=== PATIENT | female | born 1990 | race African-American/Black ===

== ENCOUNTER 2019-09-08 20:19 | Emergency (ER) | payer MEDICAID ==
[~2019-09-08] VITALS: Ht 162.6 cm; Wt 125.0 kg
[2019-09-08 20:25] VITALS: Ht 162.6 cm; Wt 125.0 kg
[2019-09-08] MEDS ORDERED: ALBUTEROL SULF8.5 GM INH (20:26)
[2019-09-08 20:49] LABS: APPEARANCE CLEAR (CLEAR); BILIRUBIN NEGATIVE (NEGATIVE); COLOR YELLOW (YELLOW); GLUCOSE NEGATIVE (NEGATIVE); KETONE NEGATIVE (NEGATIVE); NITRITE NEGATIVE (NEGATIVE); PROTEIN NEGATIVE (NEGATIVE); SPECIFIC GRAVITY 1.015 (1.005-1.020); UROBILINOGEN NORMAL (NORMAL)
[2019-09-08 20:55] LABS: HCG URINE NEGATIVE (NEGATIVE)
[2019-09-08 20:55] LABS: BASOPHILS 0.1 % (0-2); EOSINOPHILS 2.6 % (0-7); HEMOGLOBIN 11.7 g/dL (12-16); IMMATURE GRANULOCYTES 0.1 % (0-5); LYMPHOCYTES 50.5 % (15-50); MCH 28.4 pg (26.0-34.0); MCHC 30.8 g/dL (31.0-37.0); MCV 92.2 fL (80.0-100.0); MONOCYTES 5.1 % (2-11); NEUTROPHILS 41.6 % (40-80); PLATELET COUNT 280 10x3/uL (130-400); RBC 4.12 10x6/uL (4.00-5.40); RDW 12.6 % (11.5-14.5); WBC 7.7 10x3/uL (4.8-10.8)
[2019-09-08 21:39] LABS: AMYLASE - SERUM 28 U/L (25-115); CALC OSMOLALITY 280 mosm/kg (275-300); CHLORIDE - SERUM 106 mmol/L (98-107); CREATININE - SERUM 0.8 mg/dL (0.6-1.3); GLUCOSE 81 mg/dL (74-106); LIPASE 124 U/L (73-393); POTASSIUM - SERUM 3.4 mmol/L (3.5-5.1); SODIUM 142 mmol/L (136-145); UREA NITROGEN 10 mg/dL (7-18); eGFR NON AFRICAN AMERICAN 89 mL/min (90-120)
[2019-09-08 21:40] LABS: ALKALINE PHOSPHATASE 54 U/L (46-116); ALT (SGPT) 44 U/L (10-68); BILIRUBIN - TOTAL 0.23 mg/dL (0.2-1.3); CARBON DIOXIDE 26.1 mmol/L (21.0-32.0); PROTEIN - SERUM 7.8 g/dL (6.4-8.2)
[2019-09-08 21:41] LABS: ALBUMIN 3.5 g/dL (3.4-5.0)
[2019-09-08] MEDS ORDERED: ZOFRAN4 MG PO (22:02)
[2019-09-08 22:14] VITALS: BP 138/77
== END 2019-09-08 22:14 | disposition home or self-care (01) ==
LOC: D.ER 20:19
PROVIDERS: Family Medicine
DX: R11.2 Nausea with vomiting, unspecified (principal); B34.9 Viral infection, unspecified; J45.909 Unspecified asthma, uncomplicated

== ENCOUNTER 2020-03-26 11:01 | Inpatient (IN) | payer MEDICAID ==
[~2020-03-26] VITALS: Ht 162.6 cm; Wt 131.3 kg
[~2020-03-26 11:01] MED LIST: ALBUTEROL SULF8.5 GM INH; ZOFRAN4 MG PO
[2020-03-26 11:37] LABS: BASOPHILS 0.1 % (0-2); EOSINOPHILS 0.3 % (0-7); HEMATOCRIT 38.4 % (36.0-48.0); HEMOGLOBIN 11.7 g/dL (12-16); IMMATURE GRANULOCYTES 0.2 % (0-5); LYMPHOCYTES 7.7 % (15-50); MCH 27.7 pg (26.0-34.0); MCHC 30.5 g/dL (31.0-37.0); MCV 90.8 fL (80.0-100.0); MEAN PLATELET VOLUME 9.1 fL (7.4-10.4); MONOCYTES 1.4 % (2-11); NEUTROPHILS 90.3 % (40-80); PLATELET COUNT 318 10x3/uL (130-400); RBC 4.23 10x6/uL (4.00-5.40); RDW 13.3 % (11.5-14.5); WBC 10.6 10x3/uL (4.8-10.8)
[2020-03-26 11:40] LABS: CALC OSMOLALITY 279 mosm/kg (275-300); CALCIUM 8.8 mg/dL (8.5-10.1); CARBON DIOXIDE 24.3 mmol/L (21.0-32.0); CHLORIDE - SERUM 106 mmol/L (98-107); CREATININE - SERUM 1.1 mg/dL (0.6-1.3); GLUCOSE 117 mg/dL (74-106); POTASSIUM - SERUM 3.2 mmol/L (3.5-5.1); SODIUM 141 mmol/L (136-145); UREA NITROGEN 6 mg/dL (7-18); eGFR NON AFRICAN AMERICAN 61 mL/min (90-120)
[2020-03-26 11:41] LABS: APTT 27.3 SECONDS (22.8-39.4); INR 1.02 (0.85-1.17); PROTIME 13.4 SECONDS (11.6-15.0)
[2020-03-26 11:57] LABS: ALBUMIN 3.8 g/dL (3.4-5.0); ALKALINE PHOSPHATASE 56 U/L (30-120); ALT (SGPT) 53 U/L (10-68); BILIRUBIN - TOTAL 0.19 mg/dL (0.2-1.3); PRO BNP 45 pg/mL (0-125)
[2020-03-26 12:00] LABS: CREATINE KINASE 1281 UL (21-215); TROPONIN-I < 0.017 ng/mL (0.000-0.060)
[2020-03-26 12:03] VITALS: BP 149/92
[2020-03-26 12:17] VITALS: BP 149/92
[2020-03-26 12:39] LABS: HCG SERUM NEGATIVE (NEGATIVE)
[2020-03-26 13:04] VITALS: BP 146/72; BP 152/97
--- NOTE | 2020-03-26 13:19 | NUR ---
PT AMBULATED TO RESTROOM AT THIS TIME. PT REPORTS THAT SHE BECOMES SOB WITH AMBULATION. PT 02 SATURATION 95%
[2020-03-26 13:27] LABS: BILIRUBIN NEGATIVE (NEGATIVE); GLUCOSE NEGATIVE (NEGATIVE); KETONE NEGATIVE (NEGATIVE); NITRITE NEGATIVE (NEGATIVE); UROBILINOGEN NORMAL (NORMAL)
[2020-03-26 13:28] LABS: BACTERIA FEW /hpf (NEGATIVE); RED CELLS - URINE 0-5 /hpf (0-5); WHITE CELLS - URINE RARE /hpf (NEGATIVE)
--- NOTE | 2020-03-26 14:30 | NUR ---
RECEIVED PT TO ROOM 2109 VIA STRETCHER FROM ER ACCOMPANIED BY ER NURSE. PT C/O OF CHEST PAINS AND TIGHTNESS, AWAIS CUADRA AT BEDSIDE. WILL CONT TO MONITOR. MECHANIC CHIEF PUT ON PT.
[2020-03-26 14:50] VITALS: BP 138/99; Ht 162.6 cm; Wt 131.3 kg
--- NOTE | 2020-03-26 19:04 | NUR ---
PT GRANDMOTHER CALLED AND STATED "BITCH, YOU BETTER GO GIVE HER SOME PAIN MEDICINE NOW OR I'M SUEING THAT WHOLE HOS[facility]." EXPLAINED TO GRANDMOTHER THAT I HAVE ASKED MULTIPLE TIMES IF THE PT IS IN PAIN AND SHE HAS TOLD ME MULTIPLE TIMES THAT "NO, IM FINE. IM OKAY." MORPHINE GIVEN PER EMAR. WILL CONT TO MONITOR.
--- NOTE | 2020-03-26 19:07 | NUR ---
PT STATES THAT PAIN MEDICINE "HELPED" HER. WILL CONT TO MONITOR.
--- NOTE | 2020-03-26 19:10 | NUR ---
BEDSIDE REPORT RECEIVED, PT CARE ASSUMED. INTRODUCED SELF AND WROTE NAME ON BOARD. PT SITTING UP IN BED, WATCHING TV, AAOX4. DENIES PAIN OR ANY OTHER NEEDS AT THIS TIME. BED IN LOWEST, SRX2, CALL LIGHT WITHIN REACH. WILL CTM.
[2020-03-26 20:30] VITALS: BP 157/102
[2020-03-27 00:30] VITALS: BP 141/102
[2020-03-27 04:30] VITALS: BP 168/108
[2020-03-27 05:08] LABS: BASOPHILS 0 % (0-2); EOSINOPHILS 0 % (0-7); HEMATOCRIT 34.6 % (36.0-48.0); HEMOGLOBIN 10.7 g/dL (12-16); IMMATURE GRANULOCYTES 0.3 % (0-5); LYMPHOCYTES 8.6 % (15-50); MCH 27.8 pg (26.0-34.0); MCHC 30.9 g/dL (31.0-37.0); MCV 89.9 fL (80.0-100.0); MEAN PLATELET VOLUME 9.8 fL (7.4-10.4); MONOCYTES 2.3 % (2-11); NEUTROPHILS 89.1 % (40-80); PLATELET COUNT 252 10x3/uL (130-400); RBC 3.85 10x6/uL (4.00-5.40); RDW 13.4 % (11.5-14.5); WBC 13.1 10x3/uL (4.8-10.8)
[2020-03-27 05:36] LABS: CALC OSMOLALITY 276 mosm/kg (275-300); CALCIUM 8.1 mg/dL (8.5-10.1); CARBON DIOXIDE 23.7 mmol/L (21.0-32.0); CHLORIDE - SERUM 108 mmol/L (98-107); GLUCOSE 123 mg/dL (74-106); PHOSPHOROUS 2.2 mg/dL (2.5-4.9); POTASSIUM - SERUM 3.7 mmol/L (3.5-5.1); PRO BNP 273 pg/mL (0-125); SODIUM 140 mmol/L (136-145); UREA NITROGEN 5 mg/dL (7-18)
[2020-03-27 05:41] LABS: CREATININE - SERUM 0.7 mg/dL (0.6-1.3); eGFR NON AFRICAN AMERICAN > 90 mL/min (90-120)
--- NOTE | 2020-03-27 07:10 | NUR ---
REPORT RECEIVED FROM SALES ATTENDANT AND PATIENT CARE ASSUMED. PATIENT LAYING IN BED ON BACK WITH EYES CLOSED AND BREATHING EVENLY. WILL CONTINUE WITH PLAN OF CARE. SR UP X 2 BED IN LOW POSITION AND CALL LIGHT IN REACH. FAMILY MEMBER ASLEEP AT BS.
--- NOTE | 2020-03-27 09:59 | NUR ---
PATIENT IS STABLE AND VSS. PATIENT DENIES ANY NEEDS OR PAIN. WILL CONTINUE TO MONITOR. ASSESSEMNT COMPLETED.
--- NOTE | 2020-03-27 14:01 | NUR ---
PATIENT IS UNCHANGED. SITTING UP IN BED WATCHING TV. PATIENT DENIES ANY NEED OR PAIN. WILL CONTINUE TO MONITOR. SR UP X 2 BED IN LOW POSITION AND CALL LIGHT IN REACH.
[2020-03-27 15:11] VITALS: BP 140/92
[2020-03-27 15:13] LABS: CKMB 8.3 U/L (0.0-3.6)
[2020-03-27 15:14] LABS: CREATININE - SERUM 1.3 mg/dL (0.6-1.3)
[2020-03-27 17:55] VITALS: BP 146/96
--- NOTE | 2020-03-27 19:25 | NUR ---
BEDSIDE REPORT RECEIVED, PT CARE ASSUMED. WROTE NAME ON BOARD. PT ON BSC, AAOX4. URINE SAMPLE COLLECTED AND TAKEN TO LAB. DENIES ANY NEEDS AT THIS TIME. BED IN LOWEST, SRX1, CALL LIGHT WITHIN REACH. AT BEDSIDE. WILL CTM.
[2020-03-27 20:02] LABS: UDS - AMPHET NEGATIVE QUAL (NEGATIVE); UDS - BARB NEGATIVE QUAL (NEGATIVE); UDS - BENZO NEGATIVE QUAL (NEGATIVE); UDS - COCAINE NEGATIVE QUAL (NEGATIVE); UDS - OPIATE POSITIVE QUAL (NEGATIVE); UDS - PCP NEGATIVE QUAL (NEGATIVE); UDS - THC POSITIVE QUAL (NEGATIVE)
[2020-03-27 20:30] VITALS: BP 154/100
[2020-03-28 00:30] VITALS: BP 122/88
[2020-03-28 04:30] VITALS: BP 146/93
[2020-03-28 06:25] LABS: HEMATOCRIT 34.6 % (36.0-48.0); HEMOGLOBIN 10.6 g/dL (12-16); LYMPHOCYTES 9.3 % (15-50); MCH 27.6 pg (26.0-34.0); MCHC 30.6 g/dL (31.0-37.0); MCV 90.1 fL (80.0-100.0); MEAN PLATELET VOLUME 9.1 fL (7.4-10.4); NEUTROPHILS 86.5 % (40-80); RBC 3.84 10x6/uL (4.00-5.40); RDW 12.8 % (11.5-14.5); WBC 16.2 10x3/uL (4.8-10.8)
[2020-03-28 06:29] LABS: PLATELET COUNT 322 10x3/uL (130-400)
[2020-03-28 06:47] LABS: CALCIUM 8.6 mg/dL (8.5-10.1); CARBON DIOXIDE 26.6 mmol/L (21.0-32.0); CHLORIDE - SERUM 106 mmol/L (98-107); GLUCOSE 115 mg/dL (74-106); MAGNESIUM - SERUM 2.5 mg/dL (1.8-2.4); POTASSIUM - SERUM 4.1 mmol/L (3.5-5.1); SODIUM 139 mmol/L (136-145); eGFR NON AFRICAN AMERICAN 89 mL/min (90-120)
[2020-03-28 07:29] LABS: CALC OSMOLALITY 278 mosm/kg (275-300); CREATININE - SERUM 0.8 mg/dL (0.6-1.3); PHOSPHOROUS 3.3 mg/dL (2.5-4.9); UREA NITROGEN 13 mg/dL (7-18)
[2020-03-28 09:51] VITALS: BP 157/106
--- NOTE | 2020-03-28 10:15 | NUR ---
REPORT RECIEVED. PT SITTING SEMI FOWLERS IN BED. RR EVEN AND UNLABORED ON 4L NC. SHE HAS A L HAND PIV THAT IS SL. BED LOCKED AND IN LOWEST POSITION, CALL LIGHT WITHIN REACH. WILL CTM
[2020-03-28 13:18] VITALS: BP 149/108
[2020-03-28 16:00] VITALS: BP 155/101
--- NOTE | 2020-03-28 16:23 | NUR ---
I have reviewed this patient and I concur with the Shift Assessment completed by the Licensed Practical Nurse today this shift.
--- NOTE | 2020-03-28 19:20 | NUR ---
PT AWAKE AND ALERT BED LOW AND LOCKED DENIES NEEDS AT THIS TIME
[2020-03-28 21:51] VITALS: BP 146/104
[2020-03-29] VITALS (7 sets, daily range): BP systolic 132–164; BP diastolic 95–112
--- NOTE | 2020-03-29 03:03 | NUR ---
I have reviewed this patient and I concur with the Shift Assessment completed by the Licensed Practical Nurse today this shift.
[2020-03-29 05:52] LABS: BASOPHILS 0 % (0-2); EOSINOPHILS 0 % (0-7); HEMATOCRIT 34.3 % (36.0-48.0); HEMOGLOBIN 10.4 g/dL (12-16); IMMATURE GRANULOCYTES 0.6 % (0-5); LYMPHOCYTES 11.9 % (15-50); MCH 27.1 pg (26.0-34.0); MCHC 30.3 g/dL (31.0-37.0); MCV 89.3 fL (80.0-100.0); MEAN PLATELET VOLUME 9.3 fL (7.4-10.4); MONOCYTES 4.3 % (2-11); NEUTROPHILS 83.2 % (40-80); PLATELET COUNT 346 10x3/uL (130-400); RBC 3.84 10x6/uL (4.00-5.40); RDW 13.4 % (11.5-14.5); WBC 13.1 10x3/uL (4.8-10.8)
[2020-03-29 06:20] LABS: CALC OSMOLALITY 279 mosm/kg (275-300); CALCIUM 8.7 mg/dL (8.5-10.1); CARBON DIOXIDE 25.5 mmol/L (21.0-32.0); CHLORIDE - SERUM 106 mmol/L (98-107); CREATININE - SERUM 0.7 mg/dL (0.6-1.3); GLUCOSE 114 mg/dL (74-106); MAGNESIUM - SERUM 2.3 mg/dL (1.8-2.4); PHOSPHOROUS 3.6 mg/dL (2.5-4.9); POTASSIUM - SERUM 3.9 mmol/L (3.5-5.1); SODIUM 139 mmol/L (136-145); UREA NITROGEN 14 mg/dL (7-18); eGFR NON AFRICAN AMERICAN > 90 mL/min (90-120)
--- NOTE | 2020-03-29 07:33 | NUR ---
REPORT RECIEVED. PT LYING FOWLERS IN BED. RR EVEN AND UNLABORED ON 2L NC. AT BEDSIDE. SHE HAS A R WRIST PIV THAT IS SL. BED LOCKED AND IN LOWEST POSITION, CALL LIGHT WITHIN REACH. WILL CTM
--- NOTE | 2020-03-29 17:50 | NUR ---
I have reviewed this patient and I concur with the Shift Assessment completed by the Licensed Practical Nurse today this shift.
--- NOTE | 2020-03-29 19:20 | NUR ---
AWKE AND ALERT PT DENIES NEEDS AT THIS TIME BED LOW QAND LOCKED PT WITH VISITOR
--- NOTE | 2020-03-30 01:08 | NUR ---
I have reviewed this patient and I concur with the Shift Assessment completed by the Licensed Practical Nurse today this shift.
[2020-03-30 04:05] VITALS: BP 129/75
--- NOTE | 2020-03-30 07:33 | NUR ---
REPORT RECIEVED. PT SITTING UP IN BED. AT BEDSIDE. RR EVEN AND UNLABORED ON 2L NC. PT HAS A R WRIST PIV THAT IS SL. BED LOCKED AND IN LOWEST POSITION, CALL LIGHT WITHIN REACH. WILL CTM
[2020-03-30 08:11] VITALS: BP 149/105
[2020-03-30 11:42] VITALS: BP 147/100
--- NOTE | 2020-03-30 14:00 | NUR ---
I have reviewed this patient and I concur with the Shift Assessment completed by the Licensed Practical Nurse today this shift.
--- NOTE | 2020-03-30 14:46 | MORECARE ---
CASE MANAGEMENT DISCHARGE SUMMARY PATIENT: VIOLET MARSHALL UNIT: [id number] ADM DATE: 03/26/20 AGE: 29 : 88 SEX: F ROOM/BED: D.2110 AUTHOR: TAWANA BREWSTER PHYSICIAN: REFERRING PHYSICIAN: ARYA BOATENG MD DATE OF SERVICE: 03/30/20 Discharge Plan Patient Name: VIOLET MARSHALL Facility: [facility]:[place] : 1990 Planned Disposition: Home Anticipated Discharge Date: 03/31/20 Discharge Date: Expected LOS: 5 Initial Reviewer: [email or web address] Initial Review Date: 03/30/2020 Generated: 03/30/20 3:45 pm External Providers External Provider: Beatrice Next Contact Date: Service Request Date: Service Type: Resolution: Reviewer: Comments: Coverage Notice Reviewer: [id number] Carl Ortega Notice Issued Date-Time: 03/30/2020 14:42 Notice Type: Patient Choice Letter Notice Delivered To: Patient Relationship to Patient: Self Head Refrigerating Engineer Name: Delivery Method: HAND - Hand Delivered Alyson Days: Prior Verbal Notification: Recipient Understood Notice: Yes Recipient Signature: Yes Med Rec Note Co-signed by Attending: Coverage Notice Comment: [facility]Y FOR [facility] Patient Name: VIOLET MARSHALL Page [phone] at 1446 All edits/amendments must be made on the electronic document DICTATION DATE: 03/30/20 1445 CIVIL CAD TECH: TERESA 03/30/20 1445 RPT#: [id number] DC DATE: STATUS: ADM IN [facility] [address] [place] [address] END OF REPORT
--- NOTE | 2020-03-30 14:53 | MORECARE ---
CASE MANAGEMENT DISCHARGE SUMMARY PATIENT: VIOLET MARSHALL UNIT: [id number] ADM DATE: 03/26/20 AGE: 29 : 88 SEX: F ROOM/BED: D.2110 AUTHOR: NEY,DOC PHYSICIAN: REFERRING PHYSICIAN: ARYA BOATENG MD DATE OF SERVICE: 03/30/20 Discharge Plan Patient Name: VIOLET MARSHALL Facility: [facility]:[place] : 1990 Planned Disposition: Home Anticipated Discharge Date: 03/31/20 Discharge Date: Expected LOS: 5 Initial Reviewer: [id number] Initial Review Date: 03/30/2020 Generated: 03/30/20 3:52 pm Comments DCP- Discharge Planning Updated by [email or web address]: Margot Ortega on 03/30/20 1:[address] Patient Name: VIOLET MARSHALL Admission Status: Elective Accout number: [id number] Admission Date: 03-26-2020 : 1990 Admission Diagnosis:UNSPECIFIED ASTHMA WITH (ACUTE) EXACERBATION Attending: DARON Current LOS: 4 Anticipated DC Date: 03-31-2020 Planned Disposition: Home Primary Insurance: MEDICAID [place] Discharge Planning Comments: CM met with patient to complete initial dc planning assessment. CM educated patient on the CM role and verbal consent given by patient to complete assessment. Patient lives at home with her ", Carol". At discharge patient plans to return and feels this is a safe discharge. CM discussed availability of home health, rehab services, and medical equipment. Patient denies needs at this time. I informed her that Dr. Ray wants her to have a nebulizer and CASEY for [facility] signed. She will need a prescription for Duo-neb at [place]. I called Cole with [facility] and order with clinicals faxed for a nebulizer. CM will continue to follow and will assist as needed with dc plans/needs. Siphon Operator: Margot Ortega DCPIA - Discharge Planning Initial Assessment Updated by [id number]: Margot Ortega on 03/30/20 2:46 pm * Is the patient Alert and Oriented? Yes * How many steps to enter\\exit or inside your home? 2 FLIGHTS * PCP Dr. Peter El * Pharmacy [facility] on [facility] * Preadmission Environment Home with Family * ADLs Independent * Equipment None * List name and contact numbers for known caregivers / representatives who currently or will assist patient after discharge: Carol Chong - [phone] * Verbal permission to speak to the caregivers and representatives has been obtained from the patient. Yes * Community resources currently utilized None * Additional services required to return to the preadmission environment? Yes * Can the patient safely return to the preadmission environment? Yes * Has this patient been hospitalized within the prior 30 days at any hospital? No Coverage Notice Reviewer: [id number] Carl Ortega Notice Issued Date-Time: 03/30/2020 14:42 Notice Type: Patient Choice Letter Notice Delivered To: Patient Relationship to Patient: Self Swing Ride Operator Name: Delivery Method: HAND - Hand Delivered Alyson Days: Prior Verbal Notification: Recipient Understood Notice: Yes Recipient Signature: Yes Med Rec Note Co-signed by Attending: Coverage Notice Comment: [facility] FOR [facility] Last DP export: 03/30/20 1:46 p Patient Name: VIOLET MARSHALL Page [phone] at 1453 All edits/amendments must be made on the electronic document DICTATION DATE: 03/30/201451 ADULT CAREGIVER: TERESA 03/30/201451 RPT#: [id number] DC DATE: STATUS: ADM IN [facility] [address] [place] [address] END OF REPORT
[2020-03-30 14:56] VITALS: BP 148/100
--- NOTE | 2020-03-30 18:11 | NUR ---
PT C/O IV SITE HURTING. IV D/C WITH CATHETER TIP INTACT. 22G RESITED TO RIGHT HAND,SL.
--- NOTE | 2020-03-30 19:30 | NUR ---
PT IN BED, AAO X 3, RESP EVEN AND UNLABORED, NO DISTRESS NOTED, CL IN REACH, SR UP X 2.
[2020-03-30 20:48] VITALS: BP 156/104
[2020-03-31 00:48] VITALS: BP 124/84
--- NOTE | 2020-03-31 03:39 | NUR ---
I have reviewed this patient and I concur with the Shift Assessment completed by the Licensed Practical Nurse today this shift.
[2020-03-31 06:00] VITALS: BP 144/91
[2020-03-31 06:54] LABS: BASOPHILS 0.1 % (0-2); EOSINOPHILS 0 % (0-7); HEMOGLOBIN 12.1 g/dL (12-16); IMMATURE GRANULOCYTES 0.8 % (0-5); LYMPHOCYTES 15.9 % (15-50); MCH 27.4 pg (26.0-34.0); MCV 88.4 fL (80.0-100.0); MEAN PLATELET VOLUME 8.9 fL (7.4-10.4); MONOCYTES 5.7 % (2-11); NEUTROPHILS 77.5 % (40-80); PLATELET COUNT 396 10x3/uL (130-400); RBC 4.41 10x6/uL (4.00-5.40); RDW 13.1 % (11.5-14.5); WBC 13.2 10x3/uL (4.8-10.8)
[2020-03-31 07:07] LABS: ALBUMIN 3.1 g/dL (3.4-5.0); ALKALINE PHOSPHATASE 57 U/L (30-120); ALT (SGPT) 59 U/L (10-68); BILIRUBIN - TOTAL 0.22 mg/dL (0.2-1.3); CALC OSMOLALITY 279 mosm/kg (275-300); CALCIUM 8.8 mg/dL (8.5-10.1); CHLORIDE - SERUM 106 mmol/L (98-107); CREATININE - SERUM 0.9 mg/dL (0.6-1.3); GLUCOSE 106 mg/dL (74-106); POTASSIUM - SERUM 4.1 mmol/L (3.5-5.1); PROTEIN - SERUM 6.7 g/dL (6.4-8.2); SODIUM 139 mmol/L (136-145); UREA NITROGEN 17 mg/dL (7-18); eGFR NON AFRICAN AMERICAN 77 mL/min (90-120)
--- NOTE | 2020-03-31 07:33 | NUR ---
REPORT RECIEVED. PT LYING ON RIGHT SIDE. AT BEDSIDE. RR EVEN AND UNLABORED ON RA. PT HAS A R HAND PIV THAT IS SL. BED LOCKED AND IN LOWEST POSITION, CALL LIGHT WITHIN REACH WILL CTM.
[2020-03-31 08:11] VITALS: BP 150/95
[2020-03-31 12:13] VITALS: BP 134/84
[2020-03-31] MEDS ORDERED: ZITHROMAX250 MG PO (13:55)
[2020-03-31] MEDS ORDERED: FEXOFENADINE HC60 MG PO (13:55)
[2020-03-31] MEDS ORDERED: OMNICEF300 MG PO (13:55)
[2020-03-31] MEDS ORDERED: NORVASC10 MG PO (13:56)
[2020-03-31] MEDS ORDERED: MUCINEX DM ER1 EAC1 PO (13:57)
[2020-03-31] MEDS ORDERED: FLUTICASONE PRO16 GM NASAL (13:57)
[2020-03-31] MEDS ORDERED: LISINOPRIL10 MG PO (13:57)
[2020-03-31] MEDS ORDERED: SINGULAIR10 MG PO (13:57)
[2020-03-31] MEDS ORDERED: PREDNISONE10 MG PO (13:59)
[2020-03-31] MEDS ORDERED: ALBUTEROL SULF8.5 GM INH (14:00)
[2020-03-31] MEDS ORDERED: SYMBICORT 16010.2 GM INH (14:00)
[2020-03-31] MEDS ORDERED: IPRAT-ALBUT 0.5-3 ML UPD (14:01)
--- NOTE | 2020-03-31 14:44 | MORECARE ---
CASE MANAGEMENT DISCHARGE SUMMARY PATIENT: VIOLET MARSHALL UNIT: [id number] ADM DATE: 03/26/20 AGE: 29 : 86 SEX: F ROOM/BED: D.2110 AUTHOR: NEY,DOC PHYSICIAN: REFERRING PHYSICIAN: ARYA BOATENG MD DATE OF SERVICE: 03/31/20 Discharge Plan Patient Name: VIOLET MARSHALL Facility: [facility]:[place] : 1990 Planned Disposition: Home Anticipated Discharge Date: 03/31/20 Discharge Date: Expected LOS: 5 Initial Reviewer: [email or web address] Initial Review Date: 03/30/2020 Generated: 03/31/20 3:43 pm Comments DCP- Discharge Planning Updated by [email or web address]: Margot Ortega on 03/31/20 1:[address] Patient Name: VIOLET MARSHALL Encounter No: [id number] : 1990 Primary Insurance: MEDICAID [place] Anticipated DC Date: 03-31-2020 Planned Disposition: Home External Planned Provider: : DCP follow-up note: Patient and family in agreement with discharge plan. No changes to plan. [facility] has already delivered her nebulizer. I informed her she will need to brick picker the nebulizer medicine at her pharmacy. Walk test with room air sat 96% and 95% on exertion. Case management will follow and assist as needed. Margot Ortega DCP- Discharge Planning Updated by [id number]: Margot Ortega on 03/30/20 1:[address] Patient Name: VIOLET MARSHALL Admission Status: Elective Accout number: [id number] Admission Date: 03-26-2020 : 1990 Admission Diagnosis:UNSPECIFIED ASTHMA WITH (ACUTE) EXACERBATION Attending: DARON Current LOS: 4 Anticipated DC Date: 03-31-2020 Planned Disposition: Home Primary Insurance: MEDICAID [place] Discharge Planning Comments: CM met with patient to complete initial dc planning assessment. CM educated patient on the CM role and verbal consent given by patient to complete assessment. Patient lives at home with her ", Carol". At discharge patient plans to return and feels this is a safe discharge. CM discussed availability of home health, rehab services, and medical equipment. Patient denies needs at this time. I informed her that Dr. Ray wants her to have a nebulizer and CASEY for [facility] signed. She will need a prescription for Duo-neb at [place]. I called Cole with [facility] and order with clinicals faxed for a nebulizer. CM will continue to follow and will assist as needed with dc plans/needs. Imaging Engineer: Margot Ortega DCPIA - Discharge Planning Initial Assessment Updated by [email or web address]: Margot Ortega on 03/30/20 2:46 pm * Is the patient Alert and Oriented? Yes * How many steps to enter\\exit or inside your home? 2 FLIGHTS * PCP Dr. Peter El * Pharmacy [facility] on [facility] * Preadmission Environment Home with Family * ADLs Independent * Equipment None * List name and contact numbers for known caregivers / representatives who currently or will assist patient after discharge: Carol Chong - [phone] * Verbal permission to speak to the caregivers and representatives has been obtained from the patient. Yes * Community resources currently utilized None * Additional services required to return to the preadmission environment? Yes * Can the patient safely return to the preadmission environment? Yes * Has this patient been hospitalized within the prior 30 days at any hospital? No Coverage Notice Reviewer: [id number] - Margot Ortega Notice Issued Date-Time: 03/30/2020 14:42 Notice Type: Patient Choice Letter Notice Delivered To: Patient Relationship to Patient: Self Cutting Machine Tender Decorative Name: Delivery Method: HAND - Hand Delivered Alyson Days: Prior Verbal Notification: Recipient Understood Notice: Yes Recipient Signature: Yes Med Rec Note Co-signed by Attending: Coverage Notice Comment: CASEY FOR [facility] Last DP export: 03/30/20 1:52 p Patient Name: VIOLET MARSHALL Page [phone] at 1444 All edits/amendments must be made on the electronic document DICTATION DATE: 03/31/201443 PATCHER HELPER: TERESA 03/31/204 RPT#: [id number] [place] DATE: STATUS: ADM IN [facility] [address] [place] [address] END OF REPORT
--- NOTE | 2020-03-31 15:00 | NUR ---
I have reviewed this patient and I concur with the Shift Assessment completed by the Licensed Practical Nurse today this shift.
--- NOTE | 2020-03-31 15:50 | NUR ---
DC PAPERWORK GONE OVER AND SIGNED WITH PT. ALL QUESTIONS ANSWERED. PIV REMOVED, CATH TIP FULLY INTACT. ALL VALUBLES REMOVED FROM ROOM. PT REFUSED HELP TO THE CAR. FAMILY TO TAKE HER HOME.
== END 2020-03-31 15:51 | disposition home or self-care (01) | DRG 189 ==
LOC: D.ER 11:01 → D.M2 12:47
PROVIDERS: Emergency Medicine; Family Medicine; ADMIT Family Medicine; ATTEND Family Medicine
DX: J96.01 Acute respiratory failure with hypoxia (principal); J45.901 Unspecified asthma with (acute) exacerbation; Z68.42 Body mass index [BMI] 45.0-49.9, adult; M62.82 Rhabdomyolysis; E66.01 Morbid (severe) obesity due to excess calories; I10 Essential (primary) hypertension; R00.0 Tachycardia, unspecified

== ENCOUNTER 2021-03-25 17:22 | Emergency (ER) | payer MEDICAID ==
[~2021-03-25] VITALS: Ht 162.6 cm; Wt 127.3 kg
[~2021-03-25 17:22] MED LIST changes: +COMPAZINE25 MG RC; +FEXOFENADINE HC60 MG PO; +FLUTICASONE PRO16 GM NASAL; +IPRAT-ALBUT 0.5-3 ML UPD; +LISINOPRIL10 MG PO; +MUCINEX DM ER1 EAC1 PO; +NORVASC10 MG PO; +OMNICEF300 MG PO; +PREDNISONE10 MG PO; +SINGULAIR10 MG PO; +SYMBICORT 16010.2 GM INH; +ZITHROMAX250 MG PO; +ZOFRAN ODT4 MG/UDTAB PO
[2021-03-25 17:24] VITALS: BP 147/102; Ht 162.6 cm; Wt 127.3 kg
[2021-03-25 18:03] LABS: BASOPHILS 0.6 % (0-2); EOSINOPHILS 1.7 % (0-7); HEMATOCRIT 36.1 % (36.0-48.0); HEMOGLOBIN 11.6 g/dL (12-16); LYMPHOCYTES 29.7 % (15-50); MCH 27.5 pg (26.0-34.0); MCV 85.7 fL (80.0-100.0); MEAN PLATELET VOLUME 7.1 fL (7.4-10.4); MONOCYTES 5.7 % (2-11); NEUTROPHILS 62.3 % (40-80); PLATELET COUNT 316 10x3/uL (130-400); RBC 4.21 10x6/uL (4.00-5.40); WBC 6.8 10x3/uL (4.8-10.8)
[2021-03-25 18:12] LABS: CALC OSMOLALITY 274 mosm/kg (275-300); CALCIUM 9.1 mg/dL (8.5-10.1); CARBON DIOXIDE 23.7 mmol/L (21.0-32.0); CHLORIDE - SERUM 106 mmol/L (98-107); CREATININE - SERUM 0.8 mg/dL (0.6-1.3); GLUCOSE 92 mg/dL (74-106); POTASSIUM - SERUM 3.7 mmol/L (3.5-5.1); SODIUM 138 mmol/L (136-145); UREA NITROGEN 9 mg/dL (7-18); eGFR NON AFRICAN AMERICAN 88 mL/min (90-120)
[2021-03-25 18:13] LABS: BILIRUBIN NEGATIVE (NEGATIVE); KETONE 2+ mg/dL (< 1+); NITRITE NEGATIVE (NEGATIVE); SQUAMOUS EPITHELIAL 2 HPF (0-4); UROBILINOGEN NORMAL mg/dL (< 2); WHITE CELLS - URINE 1 HPF (0-4)
[2021-03-25 18:18] LABS: ALBUMIN 3.8 g/dL (3.4-5.0); ALKALINE PHOSPHATASE 61 U/L (30-120); ALT (SGPT) 62 U/L (10-68); AMYLASE - SERUM 28 U/L (25-115); BILIRUBIN - TOTAL 0.22 mg/dL (0.2-1.3); LIPASE 55 U/L (73-393); PROTEIN - SERUM 7.9 g/dL (6.4-8.2); TROPONIN-I < 0.017 ng/mL (0.000-0.060)
[2021-03-25 18:56] LABS: HCG URINE NEGATIVE (NEGATIVE)
[2021-03-25] MEDS ORDERED: PHENERGAN50 MG RC (19:42)
[2021-03-25] MEDS ORDERED: ZOFRAN ODT4 MG/UDTAB PO (19:42)
[2021-03-25] MEDS ORDERED: CIPRO500 MG PO (23:29)
[2021-03-25] MEDS ORDERED: FLAGYL500 MG PO (23:29)
== END 2021-03-26 00:25 | disposition home or self-care (01) ==
LOC: D.ER 17:22
PROVIDERS: Family Medicine
DX: A08.4 Viral intestinal infection, unspecified (principal); K52.9 Noninfective gastroenteritis and colitis, unspecified; R11.2 Nausea with vomiting, unspecified; I10 Essential (primary) hypertension; J45.909 Unspecified asthma, uncomplicated